=== PATIENT | female | born 1960 | race Caucasian/White ===

== ENCOUNTER 2020-07-11 21:49 | Emergency (ER) | payer BC ==
[2020-07-11 22:44] VITALS: RESP 16
[2020-07-11 23:02] LABS: Appearance,Urine Cloudy (Clear); Bilirubin,Urine Negative (Negative); Blood,Urine Large (Negative); Color,Urine Light Yellow; Glucose,Urine (UA) Negative (Negative); Ketones,Urine Negative (Negative); Leukocyte Esterase,Urine Large (Negative); Nitrite,Urine Negative (Negative); Protein,Urine 1+ (Negative); RBC,Urine 12 /hpf (0-5); Specific Gravity,Urine 1.005 (1.001-1.035); Urobilinogen,Urine <2.0 mg/dL (<2.0); WBC,Urine >182 /hpf (0-5)
--- NOTE | 2020-07-11 23:19 | ED ---
Female Urogenital HPI - General Chief complaint: Urogenital Stated complaint: Poss Kidney Stone Time Seen by Provider: 07/11/20 22:14 Source: patient Mode of arrival: ambulatory Limitations: no limitations - History of Present Illness Initial comments: 60-year-old female patient presents to the emergency department today for evaluation of suprapubic cramping and dysuria. Patient states that symptoms started this morning. Should contact her primary care physician and was started on Macrobid. She has taken 1 dose. She states this evening she has been urinating frequently with very little output. States her pain seems to be worsening. She denies fever or chills. Denies nausea or vomiting. Denies any flank pain. Patient denies history of frequent urinary tract infections. Denies any hematuria. She does report a history of renal failure. She does not receive dialysis. Patient denies any recent rash, cough, shortness of breath, chest pain, diarrhea, constipation, back pain, numbness, tingling, dizziness, weakness, headache, visual changes, or any other complaints. - Related Data Home Medications Medication Instructions Recorded Confirmed Nitrofurantoin Monohyd/M-Cryst 100 mg PO Q12HR 07/11/20 07/11/20 [Macrobid] Omeprazole 20 mg PO DAILY PRN 07/11/20 07/11/20 amLODIPine [Norvasc] 5 mg PO DAILY 07/11/20 07/11/20 Allergies Allergy/AdvReac Type Severity Reaction Status Date / Time amikacin Allergy Unknown Verified 07/11/20 22:38 Childhood clindamycin [From Cleocin] Allergy Unknown Verified 07/11/20 22:38 codeine Allergy Nausea Verified 07/11/20 22:38 erythromycin base Allergy Unknown Verified 07/11/20 22:38 latex Allergy Unknown Verified 07/11/20 22:38 Penicillins Allergy Anaphylaxis Verified 07/11/20 22:38 streptomycin Allergy Unknown Verified 07/11/20 22:38 Sulfa (Sulfonamide Allergy Unknown Verified 07/11/20 22:38 Antibiotics) Review of Systems ROS Statement: Those systems with pertinent positive or pertinent negative responses have been documented in the HPI. ROS Other: All systems not noted in ROS Statement are negative. Past Medical History Past Medical History: Hypertension, Renal Disease Additional Past Medical History / Comment(s): kidney disease History of Any Multi-Drug Resistant Organisms: None Reported Past Surgical History: Adenoidectomy, Appendectomy, Cholecystectomy, Tonsillectomy Past Psychological History: No Psychological Hx Reported Smoking Status: Never smoker Past Alcohol Use History: None Reported Past Drug Use History: None Reported General Exam Limitations: no limitations General appearance: alert, in no apparent distress, other (This is a well- developed, well-nourished adult female patient in no acute distress. Vital signs upon presentation are temperature 98.3F, pulse 92, respirations 20, blood pressure 180/90, pulse ox 99% on room air) Respiratory exam: Present: normal lung sounds bilaterally. Absent: respiratory distress, wheezes, rales, rhonchi, stridor Cardiovascular Exam: Present: regular rate, normal rhythm, normal heart sounds. Absent: systolic murmur, diastolic murmur, rubs, gallop, clicks Neurological exam: Present: alert, oriented X3, CN II-XII intact Psychiatric exam: Present: normal affect, normal mood Skin exam: Present: warm, dry, intact, normal color. Absent: rash Course Vital Signs 07/11/20 07/11/20 07/11/20 21:50 22:43 23:45 Temperature 98.3 F 97.9 F Pulse Rate 92 65 Respiratory 20 16 16 Rate Blood Pressure 180/90 122/65 O2 Sat by Pulse 99 97 Oximetry Medical Decision Making - Medical Decision Making 60-year-old female patient presents to the emergency department today for evaluation of dysuria and frequency of urination. Physical examination revealed no CVA tenderness. Abdomen is soft, there is some tenderness over the suprapubic region. Urine was obtained and showed a cloudy appearance with 1+ protein, large amount of blood, large leukocyte esterase, 12 red blood cells, greater than 182 white blood cells, and many white blood cell clumps. She is afebrile, vital signs. She was started on Macrobid by her primary care physician she has only taken one dose. Given her multiple ALLERGIES and history of renal failure we will continue this medication. She is instructed to increase fluids. She is instructed to follow-up with her primary care physician for recheck in 1-2 days. Return parameters discussed in detail. She verbalizes understanding and agrees with this plan. - Lab Data Lab Results 07/11/20 Range/Units 22:35 Urine Color Light Yellow Urine Appearance Cloudy H (Clear) Urine pH 6.0 (5.0-8.0) Ur Specific Morris 1.005 (1.001-1.035) Urine Protein 1+ H (Negative) Urine Glucose (UA) Negative (Negative) Urine Ketones Negative (Negative) Urine Blood Large H (Negative) Urine Nitrite Negative (Negative) Urine Bilirubin Negative (Negative) Urine Urobilinogen <2.0 (<2.0) mg/dL Ur Leukocyte Esterase Large H (Negative) Urine RBC 12 H (0-5) /hpf Urine WBC >182 H (0-5) /hpf Urine WBC Clumps Many H (None) /hpf Disposition Clinical Impression: Urinary tract infection Disposition: HOME SELF-CARE Condition: Good Instructions (If sedation given, give patient instructions): Urinary Tract Infection in Women (ED) Additional Instructions: Increase fluids, especially water. Complete antibiotic prescriptions in full. Return to the emergency department immediately for any new, worsening, or concerning symptoms. Is patient prescribed a controlled substance at d/c from ED?: No Referrals: Sophie Yuen MD [Primary Care Provider] - 1-2 days Time of Disposition: 23:19
[2020-07-11] MEDS ORDERED: MORPHINE SULFATE 4 MG/ML SYRINGE IM STA (23:25)
[2020-07-11 23:46] VITALS: BP 122/65; PULSE 65; TEMP 97.9
== END 2020-07-11 23:45 | disposition home or self-care (01) ==
LOC: EC 21:49
DX: N39.0 Urinary tract infection, site not specified (principal); I10 Essential (primary) hypertension; Z79.899 Other long term (current) drug therapy; Z88.0 Allergy status to penicillin; Z88.1 Allergy status to other antibiotic agents; Z88.2 Allergy status to sulfonamides; Z88.5 Allergy status to narcotic agent; Z91.040 Latex allergy status; Z90.89 Acquired absence of other organs; Z90.49 Acquired absence of other specified parts of digestive tract
CPT/HCPCS: 81001; 87086; 99284; 96372; J2270

== ENCOUNTER → 2021-12-11 | Outpatient (CLI) | payer BC ==
--- NOTE | 2021-12-11 17:35 | P.STRESS ---
- Stress Test Note Stress Test Results/Findings: Exam Performed: stress test Exam Date: 12/11/21 Reason for Exam: CP Height: 5 ft 3 in Weight: 61.689 kg Protocol: BREANA Stage: 3 Duration of Exercise: 8:00 Resting Heart Rate: 68 Resting Blood Pressure: 160/95 Maximum Achieved Heart Rate: 142 Maximum Achieved Blood Pressure: 173/71 85% PMHR: 134 100% PMHR: 158 METS: 9.8 Technologist Comment: Stress Test Results/Findings: Sinus regular rhythm normal IA narrow QRS normal ST segments Agent exercises of the Breana protocol for 7 minutes Recorded 142 beats a minute, normal blood pressure response No ECG with ischemia PVCs noted a regular intervals No nonsustained ventricular tachycardia Average exercise capacity no ECG evidence of ischemia PVCs noted at irregular intervals during exercise
== END | disposition home or self-care (01) ==
LOC: RADNMMAIN 08:41
PROVIDERS: ATTEND Family Medicine
DX: I25.9 Chronic ischemic heart disease, unspecified (principal)
CPT/HCPCS: 93017

== ENCOUNTER → 2022-05-28 | Outpatient (CLI) | payer BC ==
--- NOTE | 2022-05-28 12:53 | XR ---
EXAMINATION TYPE: XR chest 2V DATE OF EXAM: 05/28/2022 COMPARISON: 04/18/2011 TECHNIQUE: PA and lateral views submitted. HISTORY: Prekidney transplant evaluation FINDINGS: The lungs are clear and there is no pneumothorax, pleural effusion, or focal pneumonia. Heart size normal. No overt failure. Curvature of the spine. IMPRESSION: 1. No acute process.
== END | disposition home or self-care (01) ==
LOC: RADXRMAIN 12:31
PROVIDERS: ATTEND Internal Medicine
DX: Z01.818 Encounter for other preprocedural examination (principal)
CPT/HCPCS: 71046; 93005

== ENCOUNTER → 2022-08-10 | Outpatient (CLI) | payer BC ==
--- NOTE | 2022-08-10 13:27 | CT ---
EXAMINATION TYPE: CT sinus wo con DATE OF EXAM: 08/10/2022 COMPARISON: None HISTORY: chronic sinus congestion CT DLP: 468 mGycm. Automated Exposure Control for Dose Reduction was Utilized. TECHNIQUE: CT scan of the sinuses is performed without contrast, axial images are obtained, coronal r eformatted images are also reviewed. FINDINGS: Dental artifact limits portions [id number]. The paranasal sinuses including the frontal, ethmoid, sphenoid, and maxillary sinuses bilaterally ar e well-aerated without abnormal opacification. The ostiomeatal complex is narrowed due to localized mucosal.. Visualized portion of mastoid air cells show no abnormal opacification. The globes are intact bilate rally. IMPRESSION: 1. Very mild localized mucosal thickening at the level of the ostiomeatal complex. This results in mi ld narrowing of the ostiomeatal complex. Remaining paranasal sinuses have a normal variance. 2. Nasal septal deviation.
== END | disposition home or self-care (01) ==
LOC: RADCTMAIN 12:37
PROVIDERS: ATTEND Otolaryngology
DX: J34.2 Deviated nasal septum (principal); J34.89 Other specified disorders of nose and nasal sinuses
CPT/HCPCS: 70486

== ENCOUNTER 2022-09-23 11:14 | Day surgery (SDC) | payer BC ==
[2022-09-22 09:16] VITALS: BMI 24.7
[~2022-09-23 11:14] MED LIST: DEXAMETHASONE SOD PHOSPHATE 4 MG/ML 1 ML VIAL IV PRN; FAMOTIDINE 20 MG/2 ML VIAL IV PRN; ONDANSETRON 4 MG/2 ML VIAL IVP PRN
[2022-09-23] MEDS ORDERED: ONDANSETRON 4 MG/2 ML VIAL IVP ONE ×2 (12:30→15:53)
[2022-09-23] MEDS ORDERED: LACTATED RINGERS 1,000 ML IV SCH (12:30)
[2022-09-23] MEDS ORDERED: DEXAMETHASONE SOD PHOSPHATE 4 MG/ML 1 ML VIAL IV ONE (12:30)
[2022-09-23] MEDS ORDERED: HYDROmorphone 0.5 MG/0.5 ML SYRINGE IVP PRN (12:30)
[2022-09-23] MEDS ORDERED: SODIUM CHLORIDE 0.9% 1,000 ML IV ONE (12:30)
[2022-09-23] MEDS ORDERED: LIDOCAINE 1% (10MG/ML) FOR IV START INTRADERMA PRN (12:30)
[2022-09-23] MEDS: OXYMETAZOLINE 0.05% NASL SPRAY 1 SPRAY BOTTLE EA NOSTRIL PRN ×5 (12:40→13:00)
[2022-09-23 13:21] LABS: Albumin 4.9 g/dL (3.5-5.0); Calcium 9.3 mg/dL (8.4-10.2); Potassium 3.6 mmol/L (3.5-5.1); Total Bilirubin 0.5 mg/dL (0.2-1.3); Total Protein 7.2 g/dL (6.3-8.2)
[2022-09-23] MEDS ORDERED: SUCCINYLCHOLINE CHLORIDE 200 MG/10 ML VIAL IV ONE (13:30)
[2022-09-23] MEDS ORDERED: LIDOCAINE 2% INJ 20 MG/ML (2 ML VIAL) ONE (13:30)
[2022-09-23] MEDS ORDERED: MIDAZOLAM 2 MG/2 ML VIAL ONE (13:30)
[2022-09-23] MEDS ORDERED: LIDOCAINE 4% LTA KIT (4 ML) TOPICAL ONE (13:30)
[2022-09-23] MEDS ORDERED: ePHEDrine 50 MG/ML 1 ML VIAL ONE (13:30)
[2022-09-23] MEDS ORDERED: PROPOFOL 10 MG/ML 20 ML VIAL IV ONE (13:30)
[2022-09-23] MEDS ORDERED: fentaNYL (PF) 50 MCG/ML 2 ML AMP ONE (13:30)
[2022-09-23] MEDS ORDERED: LIDOCAINE 1%-EPI 1:100,000 20 ML VIAL SUBMUCOSAL ONE (13:59)
--- NOTE | 2022-09-23 14:50 | P.OP ---
Date of Procedure: 09/23/22 Preoperative Diagnosis: Deviated nasal septum Inferior turbinate hypertrophy Chronic sinusitis Postoperative Diagnosis: Same Procedure(s) Performed: Septoplasty Outfracture and submucous resection of the inferior turbinates Bilateral endoscopic sinus surgery including bilateral maxillary antrostomy with removal of tissue from the maxillary sinuses Anesthesia: GIOVANNI Surgeon: Rajeev Vaz Estimated Blood Loss (ml): 5 Pathology: other (Nasal septal bone and cartilage and sinus contents) Condition: stable Disposition: PACU Indications for Procedure: This is a 62-year-old white female with difficulties with chronic nasal airway obstruction bilaterally left greater than right and chronic and recurrent sinusitis. Operative Findings: Nasal septum deviated to the left the inferior turbinates are hypertrophied bilaterally maxillary ostia were obstructed bilaterally with small polyps in the maxillary sinuses bilaterally Description of Procedure: The patient was brought into the operative suite and placed in a supine positio n. The patient underwent induction of general anesthesia with oral endotracheal intubation without difficulty. The patient was prepped and draped in the usual aseptic fashion with the orbits in the operating field for monitoring to the case and the computed tomography scan was on the computer screen for review throughout the case. 1% lidocaine with 1 :100,000 epinephrine was infused submucosally into both sides of the nasal septum as well as the lateral nasal wall and anterior tips of the middle turbinates. While this was taking vasoconstrictive effect the inferior turbinates were infractured with Richardson elevator and partial submucous resection of the inferior turbinates was performed with a portion of the submucosal soft tissue and the inferior turbinate bone removed with Coblation device. The inferior turbinates were then outfractured with the Richardson elevator. A left hemitransfixion incision was then made with the mucoperichondrial and mucoperiosteal flap on the left elevated. The bony cartilaginous junction was disarticulated and the mucoperiosteal flap on the right was elevated. Bony nasal septal deformities were removed with Soledad forceps and an inferior cartilaginous strip was removed leaving a full 1.5 cm caudal strut. Checking intranasally this corrected the nasoseptal deformities and the hemitransfixion incision was closed with a running 4-0 chromic suture. Full 0 endoscopic examination is performed bilaterally. Beginning on the left, the middle turbinate was medialized. The maxillary ostium was located with a ballpoint probe and an infundibulotomy was performed followed by uncinectomy. The maxillary antrostomy was enlarged at the expense of the anterior and posterior fontanelle taking care anteriorly not to injure the lacrimal bone. The maxillary sinus was evaluated with 30 and 70 endoscope .[Abnormal appearing tissue was removed from the maxillary sinus]. [Nasopore nasal dressing was placed in the middle meatus bilaterally under direct visualization]. Bilateral Trent airway splints coated with bacitracin ointment were placed and sutured transseptally with a 4-0 nylon suture. The patient was suctioned in oral gastric fashion and was allowed to emerge from general anesthesia having tolerated procedure well and was extubated in the operating suite and transferred to the postoperative recovery area in satisfactory condition.
[2022-09-23 15:04] VITALS: RESP 16; TEMP 97
[2022-09-23 16:56] VITALS: BP 137/82; PULSE 80
== END 2022-09-23 17:15 | disposition home or self-care (01) ==
LOC: OR 11:14
PROVIDERS: ATTEND Otolaryngology
DX: J34.2 Deviated nasal septum (principal); I10 Essential (primary) hypertension; G43.909 Migraine, unspecified, not intractable, without status migrainosus
CPT/HCPCS: 30520; 31267; 43235; 80053; J2250; J0330; J1100; J0690; J2405; J3010; J2704; J2001; 88300; 88305

== ENCOUNTER → 2024-08-29 | Outpatient (CLI) | payer MEDICARE, BC | END | disposition home or self-care (01) | LOC: LABWHC1 13:30 | PROVIDERS: ATTEND Internal Medicine Nephrology | DX: Z01.812 Encounter for preprocedural laboratory examination (principal) | CPT/HCPCS: 36415 ==

== ENCOUNTER → 2024-11-27 | Outpatient (CLI) | payer MEDICARE, BC ==
[2024-11-27 16:50] LABS: HCT 33.8 % (37.2-46.3); HGB 10.9 g/dL (12.0-15.0); MCH 29.1 pg (27.0-32.0); MCHC 32.2 g/dL (32.0-37.0); MCV 90.4 FL (80.0-97.0); Mean Platelet Volume 8.9 FL (9.5-12.2); NRBC Per 100 WBC 0 X 10*3/uL (0.00-0.01); Platelet Count 233 X 10*3/uL (140-440); RBC 3.74 X 10*6/uL (4.10-5.20); RDW 12.2 % (11.5-14.5); WBC 5.81 X 10*3/uL (4.50-10.00)
[2024-11-27 18:25] LABS: Basophils # (M) 0 X 10*3/uL (0.00-0.10); Elliptocytes 2+ (None Seen); Eosinophils # (M) 0.23 X 10*3/uL (0.04-0.35); Lymphocytes # (M) 0.99 X 10*3/uL (0.90-5.00); Microcytosis (M) 2+ (None Seen); Monocytes # (M) 0.23 X 10*3/uL (0.20-1.00); Neutrophils # (M) 4.36 X 10*3/uL (1.80-7.70); Neutrophils % (M) 75 %
[2024-11-27 21:35] LABS: ALT 15 U/L (8-44); AST 19 U/L (13-35); Albumin 4.6 g/dL (3.8-4.9); Albumin/Globulin Ratio 2.09 Ratio (1.60-3.17); Alkaline Phosphatase 68 U/L (41-126); BUN/Creat Ratio 10.57 Ratio (12.00-20.00); Blood Urea Nitrogen 39.1 mg/dL (9.0-27.0); Calcium 9.1 mg/dL (8.7-10.3); Carbon Dioxide 22.5 mmol/L (21.6-31.8); Chloride 107 mmol/L (96-109); Chol/HDL Ratio 3.03 Ratio; Globulin 2.2 g/dL (1.6-3.3); Glucose 93 mg/dL (70-110); LDL Cholesterol,Calculated 98.8 mg/dL (0.0-131.0); Potassium 3.7 mmol/L (3.5-5.5); Sodium 143 mmol/L (135-145); Total Bilirubin 0.3 mg/dL (0.3-1.2); Total Protein 6.8 g/dL (6.2-8.2)
== END | disposition home or self-care (01) ==
LOC: LABWHC1 09:50
PROVIDERS: ATTEND Family Medicine
DX: I10 Essential (primary) hypertension (principal); I13.11 Hypertensive heart and chronic kidney disease without heart failure, with stage 5 chronic kidney disease, or end stage renal disease; D64.9 Anemia, unspecified
CPT/HCPCS: 36415; 80053; 80061; 84443; 85025

== ENCOUNTER → 2024-11-30 | Outpatient (CLI) | payer MEDICARE, BC ==
--- NOTE | 2024-12-01 07:38 | BD ---
EXAMINATION TYPE: Axial Bone Density DATE OF EXAM: 11/30/2024 CLINICAL HISTORY: 64 years old Female. ICD-10 CODE: Z78.0 ASYMPTOMATIC MENOPAUSAL STATE , Additional History: Height: 62 Weight: 146.6 FRAX RISK QUESTIONS: Alcohol (3 or more units per day): no Family History (Parent hip fracture): no Glucocorticoids (More than 3mos): no (Ex: prednisone, prednisolone, methylprednisolone, dexamethasone, and hydrocortisone). History of Fracture in Adulthood: yes-elbow Secondary Osteoporosis: 1. Type 1 Diabetes: no 2. Hyperthyroidism: no 3. Menopause before 45: no 4. Malnutrition: no 5. Chronic liver disease: no Rheumatoid Arthritis: no Current Tobacco Use: no RISK FACTORS HISTORY OF: Surgery to Spine/Hip(right/left)/Wrist (right/left): no EXAM MEASUREMENTS: Bone mineral densitometry was performed using the Evcar[employer] System. Bone mineral density as measured about the Lumbar spine is: ----- L1-L4(G/cm2): 0.898 T Score Values are as follows: ----- L1: -2.2 ----- L2: -2.1 ----- L3: -2.2 ----- L4: -2.8 ----- L1-L4: -2.4 Z Score Values are as follows: ----- L1: -0.7 ----- L2: -0.6 ----- L3: -0.6 ----- L4: -1.3 ----- L1-L4: -0.8 Bone mineral density has: decreased -22.1 % since study of: 01.05.2002 Bone mineral density about the R hip (g/cm2): 0.792 Bone mineral density about the L hip (g/cm2): 0.808 T Score values are as follows: -----R Neck: -2.2 -----L Neck: -2.1 -----R Total: -1.7 -----L Total: -1.6 Z Score values are as follows: -----R Neck: -0.7 -----L Neck: -0.6 -----R Total: -0.5 -----L Total: -0.4 Bone mineral density has: decreased - 24.1 % since study of: 2.21.2001 FRAX%s: The graph provided illustrates a 19.0% chance for a major osteoporotic fx and a 3.4% chance f or the hips probability for fx in 10 years time. IMPRESSION: Osteopenia (T Score between -2.5 and -1). There is slightly increased risk of fracture and the patient may be considered for treatment. Re-Screen 2-5 years. NOTE: T-SCORE=SD OF THE YOUNG ADULT MEAN. [facility], , 12/01/2024 7:36 AM
== END | disposition home or self-care (01) ==
LOC: RADBDWWP 15:45
PROVIDERS: ATTEND Family Medicine
DX: M85.89 Other specified disorders of bone density and structure, multiple sites (principal); Z78.0 Asymptomatic menopausal state
CPT/HCPCS: 77080

== ENCOUNTER → 2025-01-25 | Outpatient (CLI) | payer MEDICARE, BC | END | disposition home or self-care (01) | LOC: LABWHC1 08:02 | PROVIDERS: ATTEND Internal Medicine | DX: D84.9 Immunodeficiency, unspecified (principal); R19.7 Diarrhea, unspecified; Z94.0 Kidney transplant status | CPT/HCPCS: 36415 ==

== ENCOUNTER → 2025-03-12 | Outpatient (CLI) | payer MEDICARE, BC ==
[2025-03-12 15:44] LABS: Albumin 4.6 g/dL (3.8-4.9); BUN/Creat Ratio 20.62 Ratio (12.00-20.00); Calcium 9.3 mg/dL (8.7-10.3); Carbon Dioxide 20.4 mmol/L (21.6-31.8); Chloride 109 mmol/L (96-109); Glucose 98 mg/dL (70-110); Phosphorus 4.5 mg/dL (2.4-5.1); Potassium 4.4 mmol/L (3.5-5.5); Sodium 144 mmol/L (135-145)
[2025-03-12 15:45] LABS: Basophils # (A) 0.03 X 10*3/uL (0.00-0.10); Basophils % (A) 0.5 %; Eosinophils # (A) 0.01 X 10*3/uL (0.04-0.35); Eosinophils % (A) 0.2 %; HCT 33.2 % (37.2-46.3); HGB 10.3 g/dL (12.0-15.0); Lymphocytes # (A) 0.44 X 10*3/uL (0.90-5.00); Lymphocytes % (A) 8.1 %; MCH 30.8 pg (27.0-32.0); MCV 99.4 FL (80.0-97.0); Mean Platelet Volume 9.4 FL (9.5-12.2); Monocytes # (A) 0.48 X 10*3/uL (0.20-1.00); Monocytes % (A) 8.8 %; NRBC Per 100 WBC 0 X 10*3/uL (0.00-0.01); Neutrophils # (A) 4.46 X 10*3/uL (1.80-7.70); Neutrophils % (A) 81.7 %; Platelet Count 252 X 10*3/uL (140-440); RBC 3.34 X 10*6/uL (4.10-5.20); RDW 16.4 % (11.5-14.5); WBC 5.46 X 10*3/uL (4.50-10.00)
[2025-03-13 10:35] LABS: Hepatitis B Virus DNA Not detected (Not detected); Hepatitis B Virus DNA, Quant <10 IU/mL (<10); Log HBV IU/mL <1.00 (<1.00)
[2025-03-13 13:14] LABS: HIV-1 RNA Not detected (Not detected); HIV-1 RNA, Quant <20 Copies/mL (<20); LOG HIV Copies/mL <1.30 (<1.30)
== END | disposition home or self-care (01) ==
LOC: LABWHC1 07:39
PROVIDERS: ATTEND Family Medicine
DX: Z11.4 Encounter for screening for human immunodeficiency virus [HIV] (principal); Z20.828 Contact with and (suspected) exposure to other viral communicable diseases; B34.9 Viral infection, unspecified; Z94.0 Kidney transplant status
CPT/HCPCS: 36415; 80069; 85025; 87517; 87522; 87536